=== PATIENT | male | born 1940 | race Caucasian/White ===

== ENCOUNTER → 2018-09-26 11:09 | Day surgery (SDC) | payer MEDICARE, OTHER ==
[~2018-09-26] VITALS: Ht 175.3 cm; Wt 70.5 kg
[2018-09-26 11:37] LABS: ANION GAP 15.6 mmol/L (8-16); CALCIUM 9.6 mg/dL (8.5-10.1); CREATININE - SERUM 1.4 mg/dL (0.6-1.3); POTASSIUM - SERUM 4.6 mmol/L (3.5-5.1)
[2018-09-26 11:38] LABS: HEMOGLOBIN 11.2 g/dL (13.5-17.5); LYMPHOCYTES 9.5 % (15-50); MCH 27.1 pg (26.0-34.0); MCV 84.7 fL (80.0-100.0); MEAN PLATELET VOLUME 9.9 fL (7.4-10.4); PLATELET COUNT 190 10x3/uL (130-400); RBC 4.13 10x6/uL (4.20-6.10); RDW 13.8 % (11.5-14.5); WBC 9.8 10x3/uL (4.8-10.8)
[2018-09-26 12:05] VITALS: Ht 175.3 cm; Wt 70.5 kg
--- NOTE | 2018-09-27 17:25 | OP ---
PATIENT NAME: KATRIN MCPHERSON MEDICAL RECORD: [id number] :36 LOCATION:[facility] ADMISSION DATE: SURGEON: RENEA ALONSO DO DATE OF OPERATION: 09/26/2018 PROCEDURE: Colonoscopy with polypectomy. INDICATION FOR PROCEDURE: Anemia and positive stool guaiac. SCOPE: Olympus video pediatric colonoscope. MEDICATIONS: Propofol 250 mg IV per anesthesia. WITHDRAWAL TIME: 22 minutes. ESTIMATED BLOOD LOSS: Minimal. COMPLICATIONS: None. FINDINGS: Informed consent was given. The patient was made comfortable with the above medication. After reaching an adequate level of sedation by slow IV push, the patient was placed on his left side. A digital rectal examination was performed and was normal. The endoscope was then advanced under direct visualization through the rectum to the cecum, confirmed by the presence of the appendiceal orifice and the ileocecal valve. The endoscope was slowly withdrawn. Mucosa was carefully examined. The prep quality was good. There were 3 polyps visualized on today's examination. Two were located in the ascending colon. They were both flat polyps that measured approximately 1-1.2 cm in size. They were both removed using EMR technique with an isotonic saline pillow injection followed by a hot snare polypectomy. In the transverse colon, there was another benign-appearing polyp that was a mixed-type polyp. It measured approximately 7 mm in diameter. It was removed using a cold snare. Retroflexion was performed in the rectum with visualization of grade I internal hemorrhoids without active bleeding. The endoscope was then withdrawn from the patient. The patient tolerated the procedure well and there were no complications. IMPRESSIONS: 1. Three polyps as described above, removed using a combination of EMR technique and cold snare. 2. Grade I internal hemorrhoids visualized upon retroflexion without active bleeding. PLAN AND RECOMMENDATIONS: 1. Discharge home when recovery parameters are met. 2. Follow up biopsy specimen results. 3. High-fiber diet. 4. Continue current medications. 5. Proceed with upper endoscopy as scheduled. 6. No further recalls are necessary based on the patient's age unless symptoms warrant evaluation. TRANSINT:[id number] Voice Confirmation ID: [id number] DOCUMENT ID: [id number] OPERATIVE REPORT [id number] KATRIN MCPHERSON RENEA ALONSO DO at 6331 CC: [id number] DICTATION DATE: 09/26/18 1415 FINISHING MACHINE OPERATOR AUTOMATIC: 09/26/18 1538 [facility] 09/26/18 [place] [id number] [place] [id number]
== END | disposition home or self-care (01) ==
LOC: D.OPS 11:09
PROVIDERS: Anesthesiology; ATTEND Internal Medicine Gastroenterology
DX: D12.2 Benign neoplasm of ascending colon (principal); D12.3 Benign neoplasm of transverse colon; K64.0 First degree hemorrhoids; Z01.812 Encounter for preprocedural laboratory examination

== ENCOUNTER 2018-10-08 11:48 | Day surgery (SDC) | payer MEDICARE, OTHER ==
[~2018-10-08] VITALS: Ht 175.3 cm; Wt 70.5 kg
[2018-10-08 12:16] LABS: CALCIUM 9.7 mg/dL (8.5-10.1); CARBON DIOXIDE 27.1 mmol/L (21.0-32.0); CREATININE - SERUM 1.4 mg/dL (0.6-1.3); POTASSIUM - SERUM 4.1 mmol/L (3.5-5.1)
[2018-10-08 12:28] LABS: BASOPHILS 0.2 % (0-2); EOSINOPHILS 1.3 % (0-7); HEMATOCRIT 34.7 % (42.0-54.0); IMMATURE GRANULOCYTES 0.2 % (0-5); LYMPHOCYTES 7.9 % (15-50); MCH 26.6 pg (26.0-34.0); MCHC 31.7 g/dL (31.0-37.0); MCV 83.8 fL (80.0-100.0); MEAN PLATELET VOLUME 10.2 fL (7.4-10.4); MONOCYTES 7.7 % (2-11); NEUTROPHILS 82.7 % (40-80); RBC 4.14 10x6/uL (4.20-6.10); WBC 12.8 10x3/uL (4.8-10.8)
[2018-10-08 12:32] LABS: PLATELET COUNT 253 10x3/uL (130-400)
[2018-10-08] MEDS ORDERED: FUROSEMIDE40 MG PO (12:42)
[2018-10-08] MEDS ORDERED: ZOCOR40 MG PO (12:43)
[2018-10-08] MEDS ORDERED: OMEPRAZOLE40 MG PO (12:43)
[2018-10-08] MEDS ORDERED: FLUTICASONE PRO16 GM NASAL (12:43)
[2018-10-08] MEDS ORDERED: ALDACTONE25 MG PO (12:43)
[2018-10-08] MEDS ORDERED: PEPCID40 MG PO (12:43)
[2018-10-08] MEDS ORDERED: DONEPEZIL HCL10 MG PO (12:44)
[2018-10-08] MEDS ORDERED: METHOTREXATE2.5 MG PO (12:44)
[2018-10-08] MEDS ORDERED: COREG25 MG PO (12:44)
[2018-10-08] MEDS ORDERED: ZOCOR80 MG PO (12:44)
[2018-10-08] MEDS ORDERED: DIOVAN40 MG PO (12:45)
[2018-10-08] MEDS ORDERED: GLUCOTROL XL 5 M5 MG PO (12:45)
[2018-10-08 12:58] VITALS: BP 140/72; Ht 175.3 cm; Wt 70.5 kg
--- NOTE | 2018-10-08 15:45 | NUR ---
DC INSTRUCTIONS GIVEN TO PT. STATES UNDERSTANDING. DC'D IV CATH FULLY INTACT.
--- NOTE | 2018-10-08 15:54 | NUR ---
PT LEFT UNIT VIA WC AT 1558
--- NOTE | 2018-10-09 18:12 | OP ---
PATIENT NAME: KATRIN MCPHERSON MEDICAL RECORD: [id number] :38 [facility] AD[facility] DATE: SURGEON: RENEA ALONSO DO DATE OF OPERATION: 10/08/2018 PROCEDURE: EGD with biopsies. INDICATION FOR PROCEDURE: Epigastric pain, heartburn, and anemia. SCOPE: Olympus video gastroscope. MEDICATIONS: Propofol 250 mg IV per anesthesia. ESTIMATED BLOOD LOSS: Minimal. COMPLICATIONS: None. FINDINGS: Informed consent was given. The patient was made comfortable with the above medication. After reaching an adequate level of sedation by slow IV push, the patient was placed on his left side. The endoscope was advanced under direct visualization through the mouth to the second portion of the duodenum. The entire esophagus appeared normal. At the GE junction, there were mild changes, consistent with LA class A reflux-induced esophagitis. The endoscope was advanced into the stomach and retroflexed to view the cardia, where a small sliding hiatal hernia was present. The fundus and body of the stomach appeared normal. In the antrum and prepyloric region, there were streaky erythematous changes, consistent with gastritis. Cold forceps biopsies were taken to submit for histopathology and to rule out the presence of H. pylori. The endoscope was advanced into the duodenum, which appeared normal down to the second portion. Random cold forceps biopsies were taken to submit for histopathology. The endoscope was withdrawn from the patient. The patient tolerated the procedure well and there were no complications. IMPRESSIONS: 1. LA class A reflux-induced esophagitis. 2. Small sliding hiatal hernia. 3. Gastritis. PLAN AND RECOMMENDATIONS: 1. Discharge home when recovery parameters are met. 2. Follow up biopsy specimen results. 3. GERD diet and reflux precautions. 4. Continue current medications including omeprazole 40 mg daily. 5. Okay to add Zantac or Pepcid in the evening as needed for breakthrough symptoms. 6. We will provide a prescription for Carafate to be taken three times daily for 3 weeks to help heal the stomach. TRANSINT:[id number] Voice Confirmation ID: [id number] DOCUMENT ID: [id number] OPERATIVE REPORT [id number] KATRIN MCPHERSON RENEA ALONSO DO at 7246 CC: [id number] DICTATION DATE: 10/08/18 3108 RADIOLOGIST CHIEF OF BREAST IMAGING: 08/19/19 1539 [facility] 10/08/18 [place] [id number] [facility] [place] [address]
== END 2018-10-08 15:58 | disposition home or self-care (01) ==
LOC: D.OPS 11:48
PROVIDERS: Anesthesiology; ATTEND Internal Medicine Gastroenterology
DX: K20.9 Esophagitis, unspecified (principal); R10.13 Epigastric pain; D64.9 Anemia, unspecified; K44.9 Diaphragmatic hernia without obstruction or gangrene; K29.70 Gastritis, unspecified, without bleeding

== ENCOUNTER → 2019-01-30 12:54 | Outpatient (CLI) | payer MEDICARE, OTHER ==
[2018-10-08 12:58] VITALS: BMI 22.9
[~2019-01-30 12:54] MED LIST: ALDACTONE25 MG PO; COREG25 MG PO; DIOVAN40 MG PO; DONEPEZIL HCL10 MG PO; FLUTICASONE PRO16 GM NASAL; FUROSEMIDE40 MG PO; GLUCOTROL XL 5 M5 MG PO; METHOTREXATE2.5 MG PO; OMEPRAZOLE40 MG PO; PEPCID40 MG PO; ZOCOR40 MG PO; ZOCOR80 MG PO
== END | disposition home or self-care (01) ==
LOC: D.RAD 12:54
PROVIDERS: ATTEND Internal Medicine Gastroenterology
DX: R13.10 Dysphagia, unspecified (principal); R12 Heartburn

== ENCOUNTER → 2019-03-01 10:04 | Outpatient (CLI) | payer MEDICARE, OTHER ==
[2018-10-08 12:58] VITALS: BMI 22.9
== END | disposition home or self-care (01) ==
LOC: D.CT 10:00
PROVIDERS: ATTEND Internal Medicine Gastroenterology
DX: R13.10 Dysphagia, unspecified (principal)